=== PATIENT | male | born 1980 | race Caucasian/White ===

== ENCOUNTER → 2018-03-05 07:03 | Outpatient (CLI) | payer OTHER, SELFPAY ==
[2018-03-05 07:30] LABS: Add Manual Diff / Slide Review NO; Basophils Percent Auto 0.8 % (0-2); Eosinophils Percent Auto 7.3 % (2-4); Hematocrit 47.1 % (41-53); Hemoglobin 15.8 g/dL (13.5-17.5); Lymphocytes Percent Auto 33.3 % (25-40); Mean Corpuscular HGB Conc 33.6 % (30-36); Mean Corpuscular Hemoglobin 27.1 PG (26-34); Mean Corpuscular Volume 80.8 fL (80-100); Monocytes Percent Auto 13.1 % (3-14); Neutrophils Absolute Auto 2300 /uL (3000-5900); Neutrophils Percent Auto 45.5 % (50-75); Platelet Count 248 X10^3/uL (150-400); Red Blood Cell Count 5.84 X10^6/uL (4.5-5.9); Red Cell Distribution Width 12.9 % (11.6-14.8); White Blood Cell Count 5.1 X10^3/uL (4.5-11.0)
== END ==
PROVIDERS: Family Provider Family Medicine; PCP Family Medicine; Visit Provider Family Medicine
DX: J30.9 Allergic rhinitis, unspecified (principal)
CPT/HCPCS: 36415; 85025

== ENCOUNTER → 2018-08-07 11:59 | Outpatient (CLI) | payer OTHER, SELFPAY ==
--- NOTE | 2018-08-07 | DI.RAD.S_ITS ---
PROCEDURE: XR SHOULDER RT MIN 2V INDICATIONS: RIGHT SHOULDER PAIN TECHNIQUE: 3 views of the shoulder were acquired. COMPARISON: None. FINDINGS: Bones: No fractures or dislocations. No suspicious bony lesions. Visualized ribs appear intact. There is mild degenerative change at the a.c. joint. Soft tissues: No suspicious soft tissue calcifications. 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 No trauma. Dictated by: Shayne Sanchez M.D. on 08/07/2018 at 12:31 Approved by: Shayne Sanchez M.D. on 08/07/2018 at 12:31
== END ==
PROVIDERS: Family Provider Family Medicine; PCP Family Medicine; Visit Provider Family Medicine
DX: M25.511 Pain in right shoulder (principal)
CPT/HCPCS: 73030

== ENCOUNTER 2019-10-15 07:47 | Emergency (ER) | payer OTHER, SELFPAY ==
--- NOTE | 2019-10-15 07:58 | DI.RAD.S_ITS ---
PROCEDURE: XR WRIST RT MIN 3V INDICATIONS: distal radius pain TECHNIQUE: 4 views of the wrist were acquired. COMPARISON: None. FINDINGS: Bones: No fractures or dislocations. No suspicious bony lesions. Scaphoid view: Scaphoid is intact. Soft tissues: No suspicious soft tissue calcifications. IMPRESSION: No acute wrist fracture or dislocation. Dictated by: Hamzah Felipe M.D. on 10/15/2019 at 8:32 Approved by: Hamzah Felipe M.D. on 10/15/2019 at 8:32
[2019-10-15 08:00] VITALS: BP 163/94; PULSE 63; RESP 12; TEMP 36.7; O2SAT 100; BMI 33.2
--- NOTE | 2019-10-15 08:00 | ED.GENADULT ---
HPI - General Adult General Chief complaint: Extremity Problem,Nontraumatic Stated complaint: right wrist injury Time Seen by Provider: 10/15/19 07:52 Source: patient Mode of arrival: Ambulatory Limitations: no limitations History of Present Illness HPI narrative: 39-year-old male here for evaluation of right wrist injury. Patient states that there was no specific trauma. He states that he has been using his hands removing title for the past couple days. He states that he has been pushing on a tool trying to get the tile up off the floor so his right wrist has been extended back. Has been icing it for the past couple days without any improvement. Does have some swelling. Some bruising on the back of his hand. Also has tingling down into his middle finger and also up his arm. No prior injuries. Related Data Previous Rx's Medication Instructions Recorded amoxicillin-pot clavulanate 875 mg PO BID #14 03/13/12 [Augmentin] Allergies Allergy/AdvReac Type Severity Reaction Status Date / Time codeine Allergy Verified 10/15/19 07:59 Review of Systems Constitutional Constitutional: Denies fever(s) Musculoskeletal Comments: Right wrist pain Integumentary/Breasts Comments: Bruising on the back of the right wrist Neurologic Comments: Tingling down middle finger and up arm Hematologic/Lymphatic Hematologic/Lymphatic: Denies easy bleeding and Denies easy bruising Patient History Medical History Healthy adult (Acute) Social History Smoking Status: Never smoker Exam Initial Vital Signs Initial Vital Signs: Vital Signs Temperature 98.1 F 10/15/19 08:00 Pulse Rate 63 10/15/19 08:00 Respiratory Rate 12 10/15/19 08:00 Blood Pressure 163/94 H 10/15/19 08:00 Pulse Oximetry 100 10/15/19 08:00 Const General: cooperative and comfortable Cardio Pulses: radial pulses present on the right Skin Other: Small amount of bruising located centrally in the back of his right hand. Neuro Sensory Exam: no sensory deficits noted Extrem Other: Right elbow unremarkable. Patient unable to flex the right wrist secondary to pain. Is able to extend the right wrist somewhat. Fingers unremarkable. Small amount of swelling located mostly dorsally right wrist radial side. No tenderness to palpation over the snuffbox. No tenderness to palpation with axial loading of the thumb. Course Orders Ordered: ED Orders 10/15/19 07:58 XR wrist RT min 3V Stat Vital Signs Vital signs: Vital Signs - 8 hr 10/15/19 08:00 10/15/19 08:05 Temperature 98.1 F Pulse Rate 63 Pulse Rate [Right Radial] 63 Respiratory Rate 12 Blood Pressure 163/94 H Pulse Oximetry 100 Medical Decision Making Imaging Data Extremity x-ray #1: Radiologist's Impression: [address] [address] XRay Report Signed Patient: Spike Mario JMR#: [id number] : 1980Acct:[id number] Age/Sex: 39 / MDate of Service: 10/15/19 Loc: ED Accession Number: [id number] Procedure: XR wrist RT min 3V Ordering Provider: Tom Hall D.O. PROCEDURE: XR WRIST RT MIN 3V INDICATIONS: distal radius pain TECHNIQUE: 4 views of the wrist were acquired. COMPARISON: None. FINDINGS: Bones: No fractures or dislocations. No suspicious bony lesions. Scaphoid view: Scaphoid is intact. Soft tissues: No suspicious soft tissue calcifications. IMPRESSION: No acute wrist fracture or dislocation. Dictated by: Hamzah Felipe M.D. on 10/15/2019 at 8:32 Approved by: Hamzah Felipe M.D. on 10/15/2019 at 8:32 MDM Narrative Medical decision making narrative: Neurovascularly intact. X-ray show no signs of fracture. I suspect soft tissue injury and potentially a ligamentous injury in this area. He was placed in a removable right wrist splint that he can wear as needed. We discussed return precautions and follow-up instructions. He expressed understanding and agreement. Discharge Plan Departure Patient Disposition: Home Clinical Impression: Injury of right wrist Qualifiers: Encounter type: initial encounter Qualified Code(s): S69.91XA - Unspecified injury of right wrist, hand and finger(s), initial encounter Instructions: How To Perform RICE (Rest, Ice, Compress, Elevate) Activity Restrictions/Additional Instructions: Use the right wrist splint as needed and like we discussed. Also recommend that you ice your wrist. Return to the emergency department for any new or worsening symptoms Prescriptions: No Action amoxicillin-pot clavulanate [Augmentin] 875 MG/125 MG tablet 875 mg PO BID Qty: 14 RF: 1 Referrals: Patricia Dugan MD [Primary Care Provider] -
[2019-10-15 08:05] VITALS: PULSE 63
== END 2019-10-15 09:05 | disposition home or self-care (01) ==
PROVIDERS: Emergency Provider Emergency Medicine; Family Provider Family Medicine; PCP Family Medicine
DX: S69.91XA Unspecified injury of right wrist, hand and finger(s), initial encounter (principal)
CPT/HCPCS: 73110; 99283

== ENCOUNTER → 2021-09-14 14:59 | Outpatient (CLI) | payer OTHER, SELFPAY ==
--- NOTE | 2021-09-14 | DI.NM.S_ITS ---
PROCEDURE: NM EXERCISE TREADMILL NON NUC COMPARISON: None. INDICATIONS: Essential (primary) hypertension FINDINGS: The patient exercised for 11 minutes and 8 seconds reaching 93% of maximum predicted heart rate and mildly reduced exercise tolerance 11.8 METs, LOLLY +8%. No angina during the study. No ST changes with exercise. IMPRESSION: Low risk, normal treadmill ECG only stress test with mildly reduced exercise capacity (LOLLY +8%), no anginal symptoms, and no ST changes with exercise. Dictated by: Jesusita Akers MD on 09/14/2021 at 16:38 Approved by: Jesusita Akers MD on 09/14/2021 at 16:41
--- NOTE | 2021-09-14 15:42 | PM.TREADMILL ---
Cardiac Stress Test Report Referral & Results Date Patient Seen: 09/14/21 Time Patient Seen: 15:43 Requesting provider: Patricia Dugan Indication: Essential hypertension Rest ECG: Sinus rhythm Procedure Note: Standard [facility] protocol, 11:08, 11.8 METS Reduced exercise capacity, LOLLY +8% Normal hemodynamic response to exercise No chest pain or anginal symptoms No significant ST changes at peak exercise No ectopy Impression: Normal exercise stress test Please note: Actual ECG tracings can be found in the PACS system.
== END ==
PROVIDERS: Family Provider Family Medicine; PCP Family Medicine; Referring Provider Family Medicine; Visit Provider Family Medicine
DX: I10 Essential (primary) hypertension
CPT/HCPCS: 93017

== ENCOUNTER → 2023-09-27 07:05 | Outpatient (CLI) | payer OTHER, SELFPAY ==
--- NOTE | 2023-09-27 07:07 | DI.US.S_ITS ---
PROCEDURE: US ABDOMEN LIMITED INDICATIONS: Fatty (change of) liver, not elsewhere classified TECHNIQUE: Real-time focused scanning was performed of the abdomen, with image documentation. COMPARISON: None. FINDINGS: Liver measures 16.6 cm with increased echogenicity. Gallbladder demonstrates no stones. Wall thickness measures 1.4 mm. Common bile duct measures 3.2 mm. IMPRESSION: Hepatic steatosis. Dictated by: Yumiko Mendoza M.D. on 09/27/2023 at 10:58 Approved by: Yumiko Mendoza M.D. on 09/27/2023 at 10:59
== END ==
LOC: US 07:07
PROVIDERS: Family Provider Family Medicine; PCP Family Medicine; Referring Provider Family Medicine; Visit Provider Family Medicine
DX: K76.0 Fatty (change of) liver, not elsewhere classified (principal)
CPT/HCPCS: 76705

== ENCOUNTER → 2025-02-10 09:19 | Outpatient (CLI) | payer OTHER, SELFPAY ==
--- NOTE | 2025-02-10 09:21 | DI.RAD.S_ITS ---
PROCEDURE: XR ANKLE LT MIN 3V INDICATIONS: MASS PROXIMAL CALCANEUS TECHNIQUE: 3 views of the ankle were acquired. COMPARISON: None. FINDINGS: Bones: No fractures or dislocations. Ankle mortise is normally aligned. No suspicious bony lesions. Well-defined dorsal calcaneal enthesophyte is seen. Soft tissues: No tibiotalar joint effusion. Achilles tendon appears normal. IMPRESSION: Dorsal calcaneal enthesophyte at patient's reported area of palpable lump. No suspicious bony lesion. No fracture or dislocation. No obvious soft tissue mass is seen. If indicated, MRI of ankle can be done for further evaluation of this region. Dictated by: Hamzah Felipe M.D. on 02/10/2025 at 12:19 Approved by: Hamzah Felipe M.D. on 02/10/2025 at 12:22
== END ==
LOC: RAD 09:20
PROVIDERS: Family Provider Family Medicine; PCP Family Medicine; Referring Provider Family Medicine; Visit Provider Family Medicine
DX: M76.62 Achilles tendinitis, left leg (principal); M77.32 Calcaneal spur, left foot
CPT/HCPCS: 73610